=== PATIENT | female | born 1935 | race Caucasian/White ===

== ENCOUNTER 2024-03-15 14:37 | Outpatient (AMB) | payer MEDICARE, OTHER, SELFPAY ==
--- NOTE | 2024-03-15 14:38 | MHC.OFFVIS ---
Vital Signs 03/15/24 14:43 Height 5 ft 2 in Weight 132 lb BMI 24.1 BP 162/112 H Blood Pressure Location Lt brachial Position Sitting Respiration 16 Pulse 74 Pulse Source Pulse Oximeter Intake Visit Reasons: Rib Fracture Intake Note: Pt's BP is grossly elevated, but states she is in extreme pain Allergies Penicillins Adverse Reaction (Unknown, Verified 03/15/24 14:44) Unknown Medication List - Last Reconciled 03/15/24 by Alix Mcqueen, HERO amitriptyline 20 mg PO BEDTIME diazepam 2.5 mg PO BEDTIME PRN escitalopram oxalate 20 mg PO DAILY prednisone 20 mg PO DAILY propranolol 20 mg PO BID sumatriptan succinate take 1 tab at onset of headache; if no relief may repeat 1 tab after at least 2 hrs; max = 4 tabs/24 hr PO HPI Comments Details: Alma Delia is very pleasant 88 years old female who presents in my office with complains on pain in bilateral lower chest radiation into the anterior abdomen. Apparently patient fall on 03/03/2024 there is x-ray which is evident of a rib fracture. Because of her pain her pain is 10/10. She is retired individual. She reports that she is mildly demented. She reports that movements aggravate her pain. She states that heat application alleviate her pain. In terms of tissue damage her pain is described as pulsing throbbing and pounding sensation. She never had any physical therapy. She brought with herself today a disc from [facility] which is rib series. I will not be able to see this disc on my computer. Her past medical history significant for hypertension and headaches. Other past medical history. She admits smoking cigarettes in the past but stopped it recently. She denies drinking alcohol she did does not drink caffeinated beverages she denies recreational drugs. Review of Systems Const All systems reviewed & are unremarkable except as noted in HPI and below ENT Reports Normal hearing present Neuro Reports Normal hearing present, Denies Abnormal speech present, Denies confusion and Denies Sensory deficit (Neuro) Psych Denies confusion Physical Exam Vital Signs: Last Vital Signs Pulse 74 03/15/24 14:43 Resp 16 03/15/24 14:43 BP 162/112 H 03/15/24 14:43 BMI result Body Mass Index 24.1 Const General: no acute distress; No confusion Nutritional Appearance: average body habitus Orientation/consciousness: patient oriented x3 and No confusion Limitations: physical limitations and ambulation with walker Eyes General: appearance normal, both eyes and all related structures Pupils: Equal, round and reactive pupils present EOM: EOMs intact bilaterally Neck Neck: Yes full ROM Chest Other: Tenderness on palpation in the projection of lower portions of the posterior chest approximately in the projection of rib 9 bilaterally. Tenderness on palpation in projection of the cervical spine and upper thoracic spine. Resp Effort & Inspection: abnormal respiratory effort, not able to speak in complete sentences, abnormal respiratory pattern, no audible wheezes and no cough Cardio Jugular venous distension: no JVD GI Inspection: Yes normal to inspection Neuro General: patient oriented x3, gait normal and No confusion Cranial nerves: Yes CN's II-XII intact bilaterally, Yes Equal, round and reactive pupils present, Yes Normal hearing present and Yes Ability to bilaterally elevate shoulders present Speech: No Abnormal speech present Gait exam (Neuro): Normal gait present Motor exam (neuro): 5/5 motor strength present throughout Sensory Exam: No Sensory deficit (Neuro) Extrem General: No pedal edema Psych Speech and movement: Normal speech and movement present Affect: normal affect Attitude: cooperative Thought process: Normal thought process present Thought content: Normal thought content present Insight: Good insight present (Psych) Judgement: Good judgement present (Psych) Assessment & Plan Assessment & Plan (1) Rib fracture: Code(s): S22.39XA - Fracture of one rib, unspecified side, initial encounter for closed fracture Category: Medical (2) Intractable back pain: Code(s): M54.9 - Dorsalgia, unspecified Category: Medical Plan I offered this patient urgent rib 9 intercostal injection bilaterally. The patient was today present with her daughter and daughter was asking me multiple questions about safety of the procedure. One of the questions she had whether the injection could result in pneumothorax. I explained to her that yes of course intercostal injection may result in pneumothorax but it is very rare complication. After that she was asking me how long she would expect her mother to have pain relief on the injection. I told her that pain relief might last up to 1 week however her breathing pattern will be improved and her pain even if return will not be as severe as it is now. When she got all the explanation she decided not to go for offered intercostal injection. She was asking me what conservative measures we can employed to help her mother. I explained to her that most importantly breathing exercises such as blowing through the straw immersed into the told glass of water, blowing up rubber balloons and doing deep breath breathing exercises. I also recommend her to apply OTL lidocaine patches as well as topical medication such as low dose capsaicin and /or Wai-Townsend cream. I told them today that if they will change there mind about the injection they are welcome to come back and I will perform the procedure. Unfortunately opioid medications are poor option for this demented patient she already had her mind clouded on the trial of opioid medication, was unstable with her gait and fell. Coding Level of Care Code New Pt Level 3 (78528) Diagnoses Rib fracture S22.39XA Intractable back pain M54.9
[2024-03-15 14:43] VITALS: BP 162/112; PULSE 74; RESP 16; BMI 24.1
--- OUTSIDE RECORDS SUMMARY | 2024-03-15 17:03 | XMS_ITS | Clinical Summary ---
Author Organization [facility] Address [address] [place] [address] Care Team Providers Care Irrigation Worker Name Role Phone Almas Combs MD Primary Care Provider [phone] Allergies Active Allergy Reactions Criticality Noted Date Comments Antazoline Unknown/Patient and Family Unable to Define Medium 05/29/2016 Azithromycin Unknown/Patient and Family Unable to Define Medium 07/31/2018 Penicillins Unknown/Patient and Family Unable to Define Medium 05/29/2016 Medications Medication Sig Dispensed Refills Start Date End Date Status escitalopram (LEXAPRO) 20 MG tablet Take 20 mg by mouth daily. 3 04/29/2016 Active NEXIUM 40 MG capsule Take 20 mg by mouth 2 (two) times a day. 11 04/29/2016 Active ZETIA 10 MG tablet 10 mg. 4 05/07/2016 Active predniSONE (DELTASONE) 1 MG tabletIndications:pt states taking 2 mg 2 mg daily. 0 04/06/2016 Activ e propranolol (INDERAL) 20 MG tablet Take 20 mg by mouth 2 (two) times a day. 3 05/16/2016 Active SUMAtriptan (IMITREX) 100 MG tablet TAKE 1 TABLET BY MOUTH ONCE WITH FLUIDS EARLY POSSIBLE AFTER THE ONSET OF A MIGRAINE 3 04/16/2016 Active Vitamin D3 (CHOLECALICEROL) 2000 units tablet Take 2,000 Units by mouth daily. Active diazepam (VALIUM) 1 mg/mL solution Take 2 mg by mouth as needed for anxiety (2.5 mg). Active zoledronic acid (RECLAST) 5 MG/100ML Solution IVPB-PREMIX Infuse 5 mg into a venous catheter once. Active amitriptyline (ELAVIL) 10 MG tabletIndications:Ch ronic migraine without aura, with intractable migraine, so stated, with status migrainosus TAKE 2 TABLETS BY MOUTH ONCE DAILY AT NIGHT DIRECTED 180 tablet 12/12/2018 Active oxybutynin (DITROPAN-XL) 10 MG 24 hr tablet 03/03/2019 Active Active Problems Problem Noted Date Diagnosed Date Polymyalgia rheumatica 09/28/2018 Anxiety 09/28/2018 Osteoporosis without current pathological fractu re 09/28/2018 Cervicalgia 09/28/2018 Neuralgia 09/06/2018 Myalgia 09/06/2018 Chronic migraine without aur a, with intractable migraine, so stated, with status migrainosus 07/12/2018 Migraine without aura, with intractable migraine, so stated, with status migrainosus 07/12/2018 Resolved Problems Problem Noted Date Diagnosed Date Resolved Date Hypnic headache 03/07/2018 07/12/2018 Family History Medical History Relation Name Comments Migraines Daughter Heart disease Father Cancer Mother Heart disease Mother Depression Unknown Relation Name Status Comments Daughter Father Mother Unknown Social History Tobacco Use Types Packs/Day Years Used Date Smoking Tobacco: Former Smokeless Tobacco: Never Comments:quit 1986 Alcohol Use Standard Drinks/Week Comments Not Currently 0 (1 standard drink = 0.6 oz pur e alcohol) 2 drinks a month Sex and Gender Information Value Date Recorded Sex Assigned at Not on file Gender Identity Not on file Sexual Orientation Not on file Last Filed Vital Signs Vital Sign Reading Time Taken Comments Blood Pressure 104/66 03/15/2019 1:20 PM EST man ual Pulse 75 03/15/2019 1:20 PM EST Temperature 36.7 ??C (98 ??F) 07/31/2018 6:17 PM EDT Respiratory Rate 12 03/15/2019 1:20 PM EST Oxygen Saturation 98% 03/15/2019 1:20 PM EST Inhaled Oxygen Concentration - - Weight 63 kg (138 lb 12.8 oz) 03/15/2019 1:20 PM EST Height 154.9 cm (5' 1 ) 03/15/2019 1:20 PM EST Body Mass Index 26.23 03/15/2019 1:20 PM EST Plan of Treatment Health Maintenance Due Date Last Done Comments DTaP/Tdap/Td Vaccines (1 - Tdap) 11[birth year]05/1954 Pneumococcal Vaccines 50+ (1 of 1 - PCV) 1986 Zoster (Shingles) Vaccine (1 of 2) 1986 DXA Bone Density (Females,Ages 65 and older) 2001 RSV Vaccine 60 years and older and Patients (1 - 1-dose 75+ series) 11/05/2011 Influenza Vaccine 09/23/2023 COVID-19 Vaccine (4 - 2023-2 5 season) 2023 11/18/2021, 11/05/2020, 03/14/2020 Hepatitis B Vaccines Aged Out No long er eligible based on patient's age to complete this topic Care Teams Irrigation Worker Relationship Specialty Start Date End Date Almas Combs MD [address] [place] [address] PCP - General 04/15/16
--- OUTSIDE RECORDS SUMMARY | 2024-03-15 17:03 | XMS_ITS | Encounter Summary ---
Author Organization [facility] Address [address] [place] [address] Care Team Providers Care Ironer Or Presser Name Role Phone Almas Combs MD Primary Care Provider [phone] Encounter Details Date Type Department Care Team (Late st Contact Info) Description 05/08/2021 Erroneous Encounter [facility] CONVERSION DEPT [address] [place] [id number] ProviderLoly MD Social History Tobacco Use Types Packs/Day Years Used Date Smoking Tobacco: Former Smokeless Tobacco: Never Comments:quit 1986 Alcohol Use Standard Drinks/Week Comments Not Currently 0 (1 standard drink = 0.6 oz pur e alcohol) 2 drinks a month Sex and Gender Information Value Date Recorded Sex Assigned at Not on file Gender Identity Not on file Sexual Orientation Not on file documented as of this encounter Plan of Treatment Not on file documented as of this encounter Visit Diagnoses Not on filedocumented in this encounter Care Teams Ironer Or Presser Relationship Specialty Start Date End Date Almas Combs MD [address] [place], [place] [address]sarah Heller [address] [address] PCP - General 04/15/16 documented as of this encounter
--- OUTSIDE RECORDS SUMMARY | 2024-03-15 17:03 | XMS_ITS | Encounter Summary ---
Author Organization [facility] Address [address] [place] [address] Care Team Providers Care Pr Internship Name Role Phone Almas Combs MD Primary Care Provider [phone] Encounter Details Date Type Department Care Team (Late st Contact Info) Description 05/02/2021 Erroneous Encounter [facility] CONVERSION DEPT [address] [place] [id number] ProviderLoly MD Social History Tobacco Use Types [...] on filedocumented in this encounter Care Teams Pr Internship Relationship Specialty Start Date End Date Almas Combs MD [address] [place], [place] [address]loretta Pina [address] [address] PCP - General 04/15/16 documented as of this encounter
--- OUTSIDE RECORDS SUMMARY | 2024-03-15 17:03 | XMS_ITS | Encounter Summary ---
Author Organization [facility] Address [address] [place] [address] Care Team Providers Care Guest Services Coordinator Name Role Phone Almas Combs MD Primary Care Provider [phone] Encounter Details Date Type Department Care Team (Late st Contact Info) Description 05/20/2021 Erroneous Encounter [facility] CONVERSION DEPT [address] [place] [phone] ProviderLoly MD Social History Tobacco Use Types [...] on filedocumented in this encounter Care Teams Guest Services Coordinator Relationship Specialty Start Date End Date Almas Combs MD [address] [place], [place] [address]loretta Pina [address] [address] PCP - General 04/15/16 documented as of this encounter
--- OUTSIDE RECORDS SUMMARY | 2024-03-15 17:03 | XMS_ITS | Encounter Summary ---
Author Organization [facility] Address [address] [place] [address] Care Team Providers Care Jig Borer Name Role Phone Almas Combs MD Primary Care Provider [phone] Encounter Details Date Type Department Care Team (Late st Contact Info) Description 03/16/2019 Scanned Document [facility] [address] [phone] Shilo Castillo MD [address] [place] [address] Social History Tobacco Use Types Packs/Day Years [...] on filedocumented in this encounter Care Teams Jig Borer Relationship Specialty Start Date End Date Almas Combs MD [address] [facility] [address] [place] [address] PCP - General 04/15/16 documented as of this encounter
--- OUTSIDE RECORDS SUMMARY | 2024-03-15 17:03 | XMS_ITS | Encounter Summary ---
Author Organization [facility] Address [address] [place] [address] Care Team Providers Care Sock Lining Stitcher Name Role Phone Almas Combs MD Primary Care Provider [phone] Reason for Visit * Reason Comments Medication Refill Encounter Details Date Type Department Care Team (Late st Contact Info) Description 03/04/2019 Refill [facility] [address] [phone] Cherri Samano, BOW STRING MAKER [address] [address] Chronic migraine without aura, with intractable migraine, so stated, with status migrainosus Social History Tobacco Use Types Packs/Day Years [...] documented as of this encounter Visit Diagnoses Diagnosis Chronic migraine without aura, with intractable migraine, so stated, with status migrainosus documented in this encounter Care Teams Sock Lining Stitcher Relationship Specialty Start Date End Date Almas Combs MD [address] [place] [address] PCP - General 04/15/16 documented as of this encounter
--- OUTSIDE RECORDS SUMMARY | 2024-03-15 17:03 | XMS_ITS | Encounter Summary ---
Author Organization [facility] Address [address] [place] [address] Care Team Providers Care Belt And Link Shop Supervisor Name Role Phone Almas Combs MD Primary Care Provider [phone] Encounter Details Date Type Department Care Team (Late st Contact Info) Description 06/03/2021 Erroneous Encounter [facility] CONVERSION DEPT [address] [place] [phone] ProviderLoly MD Social History Tobacco Use Types [...] on filedocumented in this encounter Care Teams Belt And Link Shop Supervisor Relationship Specialty Start Date End Date Almas Combs MD [address] [place], [place] [address]loretta Pina [address] [address] PCP - General 04/15/16 documented as of this encounter
--- OUTSIDE RECORDS SUMMARY | 2024-03-15 17:03 | XMS_ITS | Encounter Summary ---
Author Organization [facility] Address [address] [place] [address] Care Team Providers Care Engineering Professionals Name Role Phone Almas Combs MD Primary Care Provider Encounter Details Date Type Department Care Team (Late st Contact Info) Description 01/17/2019 Scanned Document [facility] [address] [phone] Shilo Castillo MD [address] [place] [address] Social History Tobacco Use Types Packs/Day Years [...] on filedocumented in this encounter Care Teams Engineering Professionals Relationship Specialty Start Date End Date Almas Combs MD [address] [facility] [address] [place] [address] PCP - General 04/15/16 documented as of this encounter
--- OUTSIDE RECORDS SUMMARY | 2024-03-15 17:03 | XMS_ITS | Data Portability ---
Author Organization MD - [facility] Address [address] [address] Care Team Providers Care Box Truck Driver Name Role Phone JENNA PENA Primary Care Provider [phone] Assessment No assessment recorded. Plan of Treatment Reminders Order Date Submit Date Provider Last Modified By Organization Details Last Modified Time Details Appointments None record ed. Lab None record ed. Referral None record ed. Procedures None record ed. Surgeries None record ed. Imaging None record ed. Medication Orders None record ed. Patient TargetsNo targets recorded. Patient InstructionsNo instructions recorded. Reason for Referral None Reported. Results Created Date Observation Date Name Description Value Unit Range Abnormal Flag Note LastModifiedBy Organization Detail LastModifiedTime 10/12/19 24 02/19/2022 imagi ng/di agnos tic resul t No observ ation record ed. [email or web address] Not Available 20:46:15 10/21/19 24 06/29/2023 audio gram No observ ation record ed. [email or web address] Not Available 09/23 16:37:20 Result Notes None recorded. Problems Name Problem SNOMED Code Status Onset Date Resolution Date Notes Provider Name and Address Organization Details Recorded Time Impacted cerumen 83975307 Active 2014 Impacted cerumen; Note: Date Diagnosed : 10/31/2014 2:31 PM (380.4) Not Available [facility] 4 02:33:41 Chronic maxillary sinusitis 47464721 Active 2014 Chronic maxillary sinusitis Maxillar y sinusitis , chronic; Start Date : 5 Maxilla ry sinusitis , chronic; Note: Date Diagnosed : 07/13/2014 10:34 AM (473.0) ; Start Date : 5 Chronic maxillary sinusitis ; Note: Date Diagnosed : 08/16/2014 12:08 PM (J32.0) [mapped from ICD9 code: 473.0] ; Start Date : 5 Not Available [facility] 4 02:33:34 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 ; Start Date : 5 Chronic frontal sinusitis ; Note: Date Diagnosed : 07/13/2014 10:49 AM (473.1) ; Start Date : 5 Chronic frontal sinusitis ; Note: Date Diagnosed : 08/16/2014 12:08 PM (J32.1) [mapped from ICD9 code: 473.1] Not Available [facility] 4 02:33:41 Nasal polyp Active 2014 Nasal polyps Not Available [facility] 4 00:59:51 Chronic sinusitis 52411383 Active 2014 Sinusitis , chronic, NOS Sinus itis, chronic, NOS; Note: Date Diagnosed : 07/11/2014 10:32 AM (473.9) Not Available [facility] 4 02:33:34 Abnormal auditory perceptio n 10413614 Active 2014 Abnormal auditory perceptio n, unspecifi ed; Note: Date Diagnosed : 10/31/2014 2:31 PM (388.40) Not Available [facility] 4 02:33:33 Chronic ethmoidal sinusitis 47930748 Active 2014 Ethmoidal sinusitis , chronic; Start Date : 5 Ethmoid al sinusitis , chronic; Note: Date Diagnosed : 07/13/2014 10:34 AM (473.2) ; Start Date : 5 Chronic ethmoidal sinusitis ; Note: Date Diagnosed : 08/16/2014 12:08 PM (J32.2) [mapped from ICD9 code: 473.2] Not Available [facility] 4 02:33:27 Chronic rhinitis 54389527 Active 2014 Chronic rhinitis Not Available [facility] 4 00:59:54 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; Note: Date Diagnosed : 09/09/2022 11:23 AM (K14.6) Not Available [facility] 4 02:33:33 Postopera tive visit 284294494 Active 2014 Post Op Visit; Note: Date Diagnosed : 08/20/2014 1:38 PM (V67.0) Not Available [facility] 4 02:33:44 Sialolith iasis 76076504 Active 2021 Sialolith iasis; Note: Date Diagnosed : 2 11:52 AM (K11.5) Not Available [facility] 4 02:33:30 Impacted cerumen of bilateral ears 20520355062 53962 Active 2021 Impacted cerumen, bilateral ; Note: Date Diagnosed : 2 12:30 PM (H61.23) Not Available [facility] 4 02:33:31 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; Note: Date Diagnosed : 2 8:57 PM (K11.23) Not Available [facility] 4 02:33:28 Impacted cerumen in left ear 57024177400 59169 Active 2023 TRENA TRENT MD [address] [place] [address], [place], [address] , [facility] - [facility] 4 14:39:02 Tinnitus of left ear 82470377233 06 Active 2023 TRENA TRENT MD [address] [place] [address], [place], [address] , [facility] - [facility] 4 14:39:19 Auditory hallucina tions 83714957 Active 2023 TRENA TRENT MD [address] [place] [address], [place], [address] , [facility] - [facility] 4 14:39:33 Problem Notes None recorded. Procedures Surgical History None recorded. Imaging Results Imaging Date Name Status LastModified by [facility] Details LastModified Time 02/19/2022 imaging/diagno stic result completed [email or web address] Information not available 10/12/2023 20:46:15 06/29/2023 audiogram completed [email or web address] Information n ot available 10/21/2023 16:37:20 Procedure Notes None recorded. Medical Equipment None Reported. Allergies Allergen ID Allergen Name Allergen Category Reaction Reaction Severity Criticality Documentation Date Start Date Code Code System Note Provider Name and Address Organization Details Recorded Time 59467 penicilli n V potassium medicatio n other Not available Not available 07/06/202326445 5 RxNorm React ion: unkno wn, unspe cifie d;; Not Available [facility] 00[facility] Medications Name Sig Start Date Stop Date Status Note LastModified by Organization Details LastModified Time prednison e 10 mg tablet 1 tablet by mouth 2014 active Medicati on ID: 45991 Du ration Value: 30 Prescri bed By Name: Carmella Hein nd Name: predniso ne Send Method: E-Prescr ibed Sub s Allowed: subs OK Speci al Instruct ion: As directed ..take 4 tabs daily for 3 days prior to surgery Medicati onGeneri cName: predniso ne Not Available Not Available Not Available clindamyc in HCl 300 mg capsule 1 capsule by mouth 2014 active Medicati on ID: 10876 Du ration Value: 10 Prescri bed By Name: Carmella Hein nd Name: clindamy diogo HCl Send Method: E-Prescr ibed Sub s Allowed: subs OK Medic ationGen ericName : clindamy diogo HCl Not Available Not Available Not Available atorvasta tin 10 mg tablet TAKE 1 TABLET BY MOUTH EVERYDAY AT BEDTIME active Not Available Not Available No t Available sumatript an 100 mg tablet TAKE 1 TABLET EARLY POSSIBLE AFTER THE ONSET OF A MIGRAINE - TO USE UP TO 9 TABS PER MONTH active Not Available Not Available No t Available hydrocodo ne 5 mg-acetam inophen 325 mg tablet 1-2 tablet by mouth 2014 active Medicati on ID: 72459 Du ration Value: 7 Prescri bed By Name: Carmella Hein nd Name: hydrocod one-acet aminophe n Send Method: E-Prescr ibed Sub s Allowed: subs OK Medic ationGen ericName : hydrocod one-acet aminophe n Not Available Not Available Not Available famotidin e 40 mg tablet active Medicati on ID: 193721 B rand Name: rakel art Send Method: E-Prescr ibed Sub s Allowed: subs OK [facility] famotidi ne Not Available Not Available Not Available sulfameth oxazole 800 mg-trimet hoprim 160 mg tablet TAKE 1 TABLET BY MOUTH TWICE A DAY FOR 7 DAYS active Not Available Not Available No t Available amitripty line 25 mg tablet 01/05 completed Medicati on ID: 09922 Du ration Value: 30 Brand Name: amitript yline Se nd Method: E-Prescr ibed Sub s Allowed: subs OK Speci al Instruct ion: TAKE 1 TABLET (25 MG) BY ORAL ROUTE ONCE DAILY AT BEDTIME Medicati onGeneri cName: amitript yline Not Available Not Available Not Available prednison e 1 mg tablet TAKE 3 TABLETS BY MOUTH EVERY DAY active Not Available Not Available No t Available amitripty line 10 mg tablet TAKE 2 TABLETS BY MOUTH EVERY DAY AT BEDTIME active Not Available Not Available No t Available doxycycli ne monohydra te 100 mg capsule 1 capsule by mouth 2014 active Medicati on ID: 27927 Du ration Value: 21 Prescri bed By Name: Carmella Hein nd Name: doxycycl ine monohydr ate Send Method: E-Prescr ibed Sub s Allowed: subs OK [facility] : doxycycl ine monohydr ate Not Available Not Available Not Available esomepraz ole magnesium 40 mg capsule,d elayed release TAKE 1 CAPSULE BY MOUTH EVERY DAY active Not Available Not Available No t Available propranol ol 20 mg tablet TAKE 1 TABLET BY MOUTH TWICE A DAY active Not Available Not Available No t Available diazepam 5 mg tablet TAKE 1/2 TABLET BY MOUTH AT BEDTIME NEEDED active Not Available Not Available No t Available escitalop maribel 20 mg tablet TAKE 1 TABLET BY MOUTH EVERY DAY active Not Available Not Available No t Available Lexapro 5 mg tablet 01/05 completed Medicati on ID: 02824 Br and Name: Lexapro Send Method: E-Prescr ibed Sub s Allowed: subs OK Medic ationGen ericName : Lexapro Not Available Not Available Not Available ProAir HFA 90 mcg/actua tion aerosol inhaler 01/05 completed Medicati on ID: 16806 Du ration Value: 20 Brand Name: ProAir HFA Send Method: E-Prescr ibed Sub s Allowed: subs OK Speci al Instruct ion: INHALE 2 PUFFS BY INHALATI ON ROUTE EVERY 6 HOURS Me dication GenericN estela: ProAir HFA Not Available Not Available Not Available risedrona te 150 mg tablet TAKE 1 TABLET BY MOUTH EVERY 28 DAYS active Not Available Not Available No t Available Vitals Date Recorded Body height Body mass index (BMI) Body weight Provider Name and Address Organization Details Last Updated DateTime 10/21/2023 170.18 cm 21 kg/m2 65956.38 g Caden Bass MA - [facility] 10/21/2023 14:01:50 Social History None recorded. Functional Status None recorded. Mental Status None recorded. Family History Nothing Reported. Medical History No medical history recorded. Gynecological HistoryNo gynecological history recorded. Obstetrics History GPAL:G 0 P 0 0 0 0 Past Encounters Encounter ID Performer Location Encounter Start Date Encounter Closed Date Diagnosis/Indication Diagnosis SNOMED-CT Code Diagnosis ICD10 Code Diagnosis Note [id number] TRENA TRENT MD [facility] [address] [phone] 10/21/2023 13:24:14 10/21/2023 15:10:56 Impacted cerumen in left ear [id number] 728085 H61.22 Recurrent Cerumen Impactions : Ears were meticulous ly cleaned bilaterall y today with a curette and suction. The patient tolerated this well and will follow up for repeat debridemen t per routine. Auditory hallucinations 89324382 R44.0 I discussed this is likely benign and not necessaril y treatable. She has no other neurologic findings. I discussed obtaining an MRI brain to exclude neoplastic process but she declined as she would likely decline interventi on anyway. We agreed on observatio n and I asked her to call if she develops any changes or other symptoms. Health Concerns Section Related Observation LastModified by Organization Detai ls LastModified Time None Recorded Concern Status LastModified by Organization Details LastModified Time None Recorded Advance Directives Directive None Recorded Payers Encounter Date Sequence Insurance Name Policy Number Policy Key Covered Member ID Key Member ID Guarantor Name 10/21/2023 2 [id number] Donna Feng [id number] Donna Feng 10/21/2023 1 MEDICARE B-[place]: [facility] Donna Feng [id number] Donna Feng Notes Date Note Type Note Provider Name and Address Organization Details Recorded Time 10/21/2023 text/html She hears music in both ears for 6 months. She denies tinnitus. 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 TRENA TRENT MD [address] [place] [address], [phone], [facility] - [facility] 10/21/2023 14:41:30 OBGyn Episode No OBEpisode recorded.
--- OUTSIDE RECORDS SUMMARY | 2024-03-15 17:03 | XMS_ITS | Encounter Summary ---
Author Organization [facility] Address [address] [place] [address] Care Team Providers Care Telesales Professional Name Role Phone Almas Combs MD Primary Care Provider [phone] Encounter Details Date Type Department Care Team (Late st Contact Info) Description 01/11/2019 Scanned Document [facility] [address] [phone] Shilo Castillo MD [address] [place] [address] Social History Tobacco Use Types Packs/Day Years [...] on filedocumented in this encounter Care Teams Telesales Professional Relationship Specialty Start Date End Date Almas Combs MD 300 [facility] 102 [place] [address] PCP - General 04/15/16 documented as of this encounter
--- OUTSIDE RECORDS SUMMARY | 2024-03-15 17:03 | XMS_ITS | Encounter Summary ---
Author Organization [facility] Address [address] [place] [address] Care Team Providers Care Biomass Technician Name Role Phone Almas Combs MD Primary Care Provider [phone] Encounter Details Date Type Department Care Team (Late st Contact Info) Description 12/16/2018 Scanned Document [facility] [place] [address] [phone] Shilo Castillo MD [address] [place] [address] Social History Tobacco Use Types Packs/Day Years Used Date Smoking Tobacco: Former Smokeless Tobacco: Never Comments:quit 1986 Alcohol Use Standard Drinks/Week Comments Yes 0 (1 standard drink = 0.6 oz pur e alcohol) 2 drinks a month Sex and Gender Information Value Date Recorded Sex Assigned at Not on file Gender Identity Not on file Sexual Orientation Not on file documented as of this encounter Plan of Treatment Not on file documented as of this encounter Visit Diagnoses Not on filedocumented in this encounter Care Teams Biomass Technician Relationship Specialty Start Date End Date Almas Combs MD 300 [facility] [address] [place] [address] PCP - General 04/15/16 documented as of this encounter
--- OUTSIDE RECORDS SUMMARY | 2024-03-15 17:03 | XMS_ITS | Encounter Summary ---
Author Organization [facility] Address [address] [place] [address] Care Team Providers Care Student Officer Name Role Phone Almas Combs MD Primary Care Provider [phone] Encounter Details Date Type Department Care Team (Late st Contact Info) Description 05/20/2021 Erroneous Encounter [facility] [address] [place] [phone] ProviderLoly MD Social History Tobacco Use Types [...] on filedocumented in this encounter Care Teams Student Officer Relationship Specialty Start Date End Date Almas Combs MD [address] [place], [place] [address]loretta Pina [address] [address] PCP - General 04/15/16 documented as of this encounter
--- OUTSIDE RECORDS SUMMARY | 2024-03-15 17:04 | XMS_ITS | Clinical Summary ---
Author Organization [facility] Address [address] [place] [address] Care Team Providers Care Human Resources Psychologist Name Role Phone Unknown, Primary Care Provider Unavailabl e Immunizations Name Administration Dates Next Due Covid-19 (Pfizer) Dilution Required 03/14/2020 Social History Tobacco Use Types Packs/Day Years Used Date Smoking Tobacco: Never Assessed Sex and Gender Information Value Date Recorded Sex Assigned at Female 03/14/2020 11:19 AM EST Gender Identity Not on file Sexual Orientation Not on file Job Start Date Occupation Industry Not on file Not on file Not on file Plan of Treatment Health Maintenance Due Date Last Done Comments Depression Screening 1948 Preventative Health Evaluation 1954 DTap / Tdap / Td (1 - Tdap) 11/05/1955 Fall Risk Assessment 2001 Osteoporosis Screening (DEXA Scan) 2001 RSV Adult > 60+ Yrs or (1 - 1-dose 75+ series) 11/05/2011 Pneumococcal Vaccine (2 of 2 - PCV) 11/23/2019 11/22/2018 COVID-19 Vaccine (3 - season) 2023 04/08/2020, 03/14/2020 Influenza Vaccine (#1) 2023 , 11/27/2019, 11/22/2018, Additional history exists Shingrix-Zoster Vaccine Completed 06/21/2020, 01/01 Hepatitis B Vaccines Aged Out No long er eligible based on patient's age to complete this topic RSV Ped < 20 months Aged Out No longe r eligible based on patient's age to complete this topic Care Teams Human Resources Psychologist Relationship Specialty Start Date End Date Unknown, PCP - General 01/30/21
--- OUTSIDE RECORDS SUMMARY | 2024-03-15 17:04 | XMS_ITS | Encounter Summary ---
Author Organization [facility] Address [address] [place] [address] Care Team Providers Care News Assistant Name Role Phone Almas Combs MD Primary Care Provider [phone] Encounter Details Date Type Department Care Team (Late st Contact Info) Description 06/08/2016 Scanned Document [address] [place] [address] Wendy Betts, DISTRICT RANGER [address] [facility] [address] [place] [address] Social History Tobacco Use Types Packs/Day Years [...] on filedocumented in this encounter Care Teams News Assistant Relationship Specialty Start Date End Date Almas Combs MD 300 [facility] [place] [address] PCP - General 04/15/16 documented as of this encounter
--- OUTSIDE RECORDS SUMMARY | 2024-03-15 17:04 | XMS_ITS | Encounter Summary ---
Author Organization [facility] Address [address] [place] [address] Care Team Providers Care Cardiology Rn Name Role Phone Almas Combs MD Primary Care Provider [phone] Encounter Details Date Type Department Care Team (Late st Contact Info) Description 08/08/2018 Scanned Document [facility] [address] [phone] Shilo Castillo MD [address] [place] [address] Social History Tobacco Use Types Packs/Day Years [...] on filedocumented in this encounter Care Teams Cardiology Rn Relationship Specialty Start Date End Date Almas Combs MD [address] [facility] 102 [place] [address] PCP - General 04/15/16 documented as of this encounter
--- OUTSIDE RECORDS SUMMARY | 2024-03-15 17:04 | XMS_ITS | Encounter Summary ---
Author Organization [facility] Address [address] [place] [address] Care Team Providers Care Roads Superintendent Name Role Phone Almas Combs MD Primary Care Provider [phone] Reason for Visit * Reason Comments Medication Refill Encounter Details Date Type Department Care Team (Late st Contact Info) Description 06/21/2017 Refill [facility] 65 [facility]. [address] [place] [address] Wendy Betts, CLIENT SERVICES SPECIALIST [address] [facility] [address] [place] [address] Chronic migraine without aura, with intractable migraine, [...] migrainosus documented in this encounter Care Teams Roads Superintendent Relationship Specialty Start Date End Date Almas Combs MD [address] Lizy Pina [address] [address] PCP - General 04/15/16 documented as of this encounter
--- OUTSIDE RECORDS SUMMARY | 2024-03-15 17:04 | XMS_ITS | Encounter Summary ---
Author Organization [facility] Address [address] [place] [address] Care Team Providers Care Grease Renderer Name Role Phone Almas Combs MD Primary Care Provider [phone] Encounter Details Date Type Department Care Team (Late st Contact Info) Description 07/03/2016 Scanned Document [facility] 65 [facility]. [address] [place] [address] Wendy Betts, MALTSTER 280 [facility] [address] [place] [address] Social History Tobacco Use Types Packs/Day Years [...] on filedocumented in this encounter Care Teams Grease Renderer Relationship Specialty Start Date End Date Almas Combs MD [address] [address] PCP - General 04/15/16 documented as of this encounter
--- OUTSIDE RECORDS SUMMARY | 2024-03-15 17:04 | XMS_ITS | Encounter Summary ---
Author Organization [facility] Address 100 [place] [address] Care Team Providers Care Prototype Fabricator Name Role Phone Almas Combs MD Primary Care Provider [phone] Encounter Details Date Type Department Care Team (Late st Contact Info) Description 04/13/2018 Scanned Document [facility] 65 [facility]. [address] [place] [address] Shilo Castillo MD 65 [facility] [address] [place] [address] Social History Tobacco Use Types Packs/Day Years [...] on filedocumented in this encounter Care Teams Prototype Fabricator Relationship Specialty Start Date End Date Almas Combs MD 300 [facility] 102 [place] [address] PCP - General 04/15/16 documented as of this encounter
--- OUTSIDE RECORDS SUMMARY | 2024-03-15 17:04 | XMS_ITS | Encounter Summary ---
Author Organization [facility] Address 100 [place] [address] Care Team Providers Care Foam Cutting Supervisor Name Role Phone Almas Combs MD Primary Care Provider [phone] Encounter Details Date Type Department Care Team (Late st Contact Info) Description 07/03/2016 Scanned Document [facility] 65 [facility]. [address] [place] [address] Wendy Betts, DISTRIBUTOR OPERATOR 280 [facility] [address] [place] [address] Social History Tobacco Use Types Packs/Day Years [...] on filedocumented in this encounter Care Teams Foam Cutting Supervisor Relationship Specialty Start Date End Date Almas Combs MD [address] [address] PCP - General 04/15/16 documented as of this encounter
--- OUTSIDE RECORDS SUMMARY | 2024-03-15 17:04 | XMS_ITS | Encounter Summary ---
Author Organization [facility] Address [address] [place] [address] Care Team Providers Care Metallurgical Analyst Name Role Phone Almas Combs MD Primary Care Provider [phone] Encounter Details Date Type Department Care Team (Late st Contact Info) Description 07/03/2016 Scanned Document [facility] 65 [facility]. [address] [place] [address] Wendy Betts, EDUCATIONAL PROGRAM ASSISTANT 280 [facility] [address] [place] [address] Social History Tobacco Use Types Packs/Day Years [...] on filedocumented in this encounter Care Teams Metallurgical Analyst Relationship Specialty Start Date End Date Almas Combs MD [address] [address] PCP - General 04/15/16 documented as of this encounter
--- OUTSIDE RECORDS SUMMARY | 2024-03-15 17:04 | XMS_ITS | Encounter Summary ---
Author Organization [facility] Address 100 [place] [address] Care Team Providers Care Sales Support Administrator Name Role Phone Almas Combs MD Primary Care Provider [phone] Encounter Details Date Type Department Care Team (Late st Contact Info) Description 05/29/2016 Orders Only [facility] 65 [facility]. [address] [place] [address] Wendy Betts, COMMUNICATIONS INSTRUCTOR 280 [facility] [address] [place] [address] Social History Tobacco Use Types Packs/Day Years [...] on filedocumented in this encounter Care Teams Sales Support Administrator Relationship Specialty Start Date End Date Almas Combs MD [address] [address] PCP - General 04/15/16 documented as of this encounter
--- OUTSIDE RECORDS SUMMARY | 2024-03-15 17:04 | XMS_ITS | Clinical Summary ---
Author Organization [facility] Address [address] [place] [address] Care Team Providers Care Municipal Clerk Name Role Phone Md, Unknown Primary Care Provider Unavailabl e Allergies Active Allergy Reactions Criticality Noted Date Comments Antazoline Unknown Medium 05/29/2016 Azithromycin Unknown Medium 07/31/2018 Erythromycin Other 09/13/2022 Penicillins Unknown Medium 05/29/2016 Medications amitriptyline (Elavil) 10 mg tablet Take 2 tablets (20 mg total) by mouth every night. 08/21/2022 Active atorvastatin (Lipitor) 10 mg tablet Take 1 tablet (10 mg total) by mouth every night. 06/22/2022 Active cholecalciferol (VITAMIN D-3) 50 mcg (2,000 unit) tablet Take 1 tablet (2,000 Units total) by mouth. Active diazePAM (VALIUM) 5 mg/5 mL (1 mg/mL) solution Take 2 mL (2 mg total) by mouth 1 (one) time each day if needed. Active escitalopram (Lexapro) 20 mg tablet Take 1 tablet (20 mg total) by mouth 1 (one) time each day. 05/16/2022 Active esomeprazole (NexIUM) [address] capsule Take 1 tablet by mouth 1 (one) time each day. 06/18/2022 Active famotidine (PEPCID) 40 mg tablet Take 1 tablet (40 mg total) by mouth 2 (two) times a day. 05/23/2022 Active predniSONE (Deltasone) 1 mg tablet Take 3 tablets (3 mg total) by mouth 1 (one) time each day. 08/13/2022 Active propranoloL (Inderal) 20 mg tablet Take 1 tablet (20 mg total) by mouth 2 (two) times a day. 05/25/2022 Active zoledronic acid (Reclast) 5 mg/100 mL piggyback Infuse 100 mL (5 mg total) into a venous catheter. Active Social History Tobacco Use Types Packs/Day Years Used Date Smoking Tobacco: Never Assessed Comments Unknown Sex and Gender Information Value Date Recorded Sex Assigned at Not on file Legal Sex Female 9:12 AM EDT Gender Identity Not on file Sexual Orientation Not on file Last Filed Vital Signs Vital Sign Reading Time Taken Comments Blood Pressure 100/62 09/13/2022 12:25 PM EDT Pulse 88 09/13/2022 11:24 AM EDT Temperature 36.7 ??C (98.1 ??F) 09/13/2022 12:25 PM E DT Respiratory Rate 12 09/13/2022 12:25 PM EDT Oxygen Saturation 98% 09/13/2022 12:25 PM EDT Inhaled Oxygen Concentration - - Weight - - Height - - Body Mass Index - - Plan of Treatment Health Maintenance Due Date Last Done Comments Mammogram 1935 Medicare Annual Wellness Visit 1953 Tdap and Td Vaccines Adult 11/05/1954 Pneumococcal Vaccine: 50+ Years (1 of 1 - PCV) 1986 Zoster Vaccines (1 of 2) 1986 Fall Risk Screening 2001 RSV 60+ (1 - 1-dose 75+ series) 11/05/2011 COVID-19 Vaccine ( - 2023-2 5 season) 2023 11/18/2021, 11/05/2020, 03/14/2020 Influenza Vaccine (#1) 2023 HIB Vaccines Aged Out No longer eligi ble based on patient's age to complete this topic HPV Vaccines Aged Out No longer eligi ble based on patient's age to complete this topic Hepatitis A Vaccines Aged Out No long er eligible based on patient's age to complete this topic IPV Vaccines Aged Out No longer eligi ble based on patient's age to complete this topic Meningococcal Vaccine Aged Out No alfa maximino eligible based on patient's age to complete this topic Osteoporosis Screening Discontinued RSV <20 Months Aged Out No longer abdulaziz gible based on patient's age to complete this topic Insurance MEDICARE [facility] [employer] Care Teams Municipal Clerk Relationship Specialty Start Date End Date , Unknown 1 Dont Change PCP - General 09/13/22
== END 2024-03-15 15:09 | disposition home or self-care (01) ==
PROVIDERS: PCP Internal Medicine; Referring Provider Internal Medicine; Visit Provider Anesthesiology
DX: S22.39XA Fracture of one rib, unspecified side, initial encounter for closed fracture (principal); M54.9 Dorsalgia, unspecified
CPT/HCPCS: 99204

== ENCOUNTER → 2024-03-15 14:37 | Outpatient (BNVA) | payer MEDICARE, OTHER, SELFPAY | PROVIDERS: PCP Internal Medicine; Referring Provider Internal Medicine; Visit Provider Anesthesiology | DX: S22.39XA Fracture of one rib, unspecified side, initial encounter for closed fracture (principal); M54.9 Dorsalgia, unspecified; X58.XXXA Exposure to other specified factors, initial encounter; Y93.9 Activity, unspecified; Y92.9 Unspecified place or not applicable; Y99.9 Unspecified external cause status | CPT/HCPCS: 99202 ==

== ENCOUNTER 2024-03-16 08:22 | Outpatient (REF) | payer MEDICARE, OTHER, SELFPAY | END 2024-03-16 08:23 | disposition home or self-care (01) | LOC: CF 08:22 | DX: Z13.89 Encounter for screening for other disorder (principal) ==